=== PATIENT | male | born 1985 | race Caucasian/White ===

== ENCOUNTER 2018-07-09 08:42 | Emergency (ER) | payer OTHER ==
[2018-07-09 08:48] VITALS: RESP 18
--- NOTE | 2018-07-09 09:02 | ED ---
General Adult HPI - General Chief complaint: Upper Respiratory Infection Stated complaint: Coughing & chest pain Source: patient, RN notes reviewed, old records reviewed Mode of arrival: ambulatory Limitations: no limitations - History of Present Illness Initial comments: 33-year-old male presents for evaluation of cough with blood-tinged mucus. Patient was diagnosed with influenza on Friday which was 5 days prior. He states he had URI symptoms and cough 3 days prior to this diagnosis. He has been sick for approximately 10 days total. He has positive sick contacts within his household. He's had a cough which is productive of brown yellow mucous and this morning he had several episodes of blood tinged mucus. He states that his cough is been worse over the past several days. He states he is otherwise feeling well. No fever chills. No vomiting or diarrhea. He states he is back to normal with the exception of persistent productive cough. He does report left-sided chest pain, worse with cough and deep breathing. No chronic medical conditions. No abdominal pain. No fever chills. No lower extremity pain or swelling. - Related Data Home Medications Medication Instructions Recorded Confirmed Albuterol Nebulized [Ventolin 2.5 mg INHALATION RT-Q4H PRN 07/09/18 07/09/18 Nebulized] Previous Rx's Medication Instructions Recorded methylPREDNISolone Dose Pack 4 mg PO DIRECTED #21 package 07/09/18 [Medrol Dose Pack] Allergies Allergy/AdvReac Type Severity Reaction Status Date / Time Penicillins Allergy Unknown Verified 07/09/18 09:01 sulfamethoxazole Allergy Itching Verified 07/09/18 09:01 [From Bactrim] trimethoprim [From Bactrim] Allergy Itching Verified 07/09/18 09:01 Review of Systems ROS Statement: Those systems with pertinent positive or pertinent negative responses have been documented in the HPI. ROS Other: All systems not noted in ROS Statement are negative. Past Medical History Past Medical History: No Reported History History of Any Multi-Drug Resistant Organisms: None Reported Past Surgical History: Appendectomy Past Psychological History: Anxiety Smoking Status: Former smoker Past Alcohol Use History: None Reported Past Drug Use History: None Reported General Exam Limitations: no limitations General appearance: alert, in no apparent distress Head exam: Present: atraumatic, normocephalic Eye exam: Present: normal appearance, PERRL ENT exam: Present: normal exam Neck exam: Present: normal inspection. Absent: tenderness, meningismus Respiratory exam: Present: normal lung sounds bilaterally. Absent: respiratory distress, wheezes, rales, rhonchi Cardiovascular Exam: Present: regular rate, normal rhythm GI/Abdominal exam: Present: soft. Absent: distended, tenderness, guarding Extremities exam: Present: normal inspection, normal capillary refill. Absent: pedal edema, calf tenderness Neurological exam: Present: alert, oriented X3. Absent: motor sensory deficit Psychiatric exam: Present: normal affect, normal mood Skin exam: Present: warm, dry, intact. Absent: cyanosis, diaphoretic Course Vital Signs 07/09/18 08:45 Temperature 98.8 F Pulse Rate 71 Respiratory 18 Rate Blood Pressure 152/86 O2 Sat by Pulse 98 Oximetry Medical Decision Making - Medical Decision Making 33-year-old male with productive cough, recent diagnosis of influenza, and concern for lead tinged sputum. X-rays obtained, negative for focal pneumonia. This is likely related to bronchitis secondary to influenza. Patient will continue to monitor symptoms. He will return with worsening or changing symptoms. Disposition Clinical Impression: Influenza, Bronchitis Disposition: HOME SELF-CARE Condition: Good Instructions: Upper Respiratory Infection (ED), Influenza (ED), Acute Bronchitis (ED) Prescriptions: methylPREDNISolone Dose Pack [Medrol Dose Pack] 4 mg PO DIRECTED #21 package Is patient prescribed a controlled substance at d/c from ED?: No Referrals: Danial Peguero III, MD [Primary Care Provider] - 1-2 days Time of Disposition: 09:44
--- NOTE | 2018-07-09 09:41 | XR ---
EXAMINATION TYPE: XR chest 2V DATE OF EXAM: 07/09/2018 COMPARISON: NONE HISTORY: Chest pain with cough TECHNIQUE: Frontal and lateral views of the chest are obtained. FINDINGS: There is no focal air space opacity, pleural effusion, or pneumothorax seen. The cardiac silhouette size is within normal limits. The osseous structures are intact. IMPRESSION: No acute cardiopulmonary process.
[2018-07-09 09:51] VITALS: BP 140/92; PULSE 68; TEMP 98.6
== END 2018-07-09 09:50 | disposition home or self-care (01) ==
LOC: EC 08:42
DX: J40 Bronchitis, not specified as acute or chronic (principal); J11.1 Influenza due to unidentified influenza virus with other respiratory manifestations; Z87.891 Personal history of nicotine dependence; Z88.0 Allergy status to penicillin; Z88.2 Allergy status to sulfonamides
CPT/HCPCS: 71046; 99285

== ENCOUNTER 2018-09-01 13:10 | Observation (INO) | payer OTHER ==
[2018-09-01] MEDS ORDERED: MECLIZINE 12.5 MG TAB PO STA (14:36)
[2018-09-01] MEDS ORDERED: SODIUM CHLORIDE 0.9% 1,000 ML IV STA (14:36)
[2018-09-01 15:11] LABS: Basophils % (A) 1 %; Eosinophils # (A) 0.1 k/uL (0-0.7); Eosinophils % (A) 1 %; HCT 47.4 % (39.0-53.0); HGB 16.2 gm/dL (13.0-17.5); Lymphocytes # (A) 1.6 k/uL (1.0-4.8); Lymphocytes % (A) 29 %; MCH 30.1 pg (25.0-35.0); MCHC 34.2 g/dL (31.0-37.0); MCV 88.2 fL (80.0-100.0); Mean Platelet Volume 7.4; Monocytes # (A) 0.4 k/uL (0-1.0); Monocytes % (A) 6 %; Neutrophils # (A) 3.4 k/uL (1.3-7.7); Neutrophils % (A) 61 %; Platelet Count 221 k/uL (150-450); RBC 5.37 m/uL (4.30-5.90); RDW 12.6 % (11.5-15.5); WBC 5.6 k/uL (3.8-10.6)
[2018-09-01 15:13] LABS: Appearance,Urine Clear (Clear); Bilirubin,Urine Negative (Negative); Blood,Urine Negative (Negative); Color,Urine Yellow; Glucose,Urine (UA) Negative (Negative); Ketones,Urine Negative (Negative); Leukocyte Esterase,Urine Negative (Negative); Nitrite,Urine Negative (Negative); Protein,Urine Negative (Negative); Specific Gravity,Urine 1.012 (1.001-1.035); Urobilinogen,Urine <2.0 mg/dL (<2.0)
[2018-09-01 15:20] LABS: ALT 43 U/L (21-72); AST 39 U/L (17-59); Albumin 4.6 g/dL (3.5-5.0); Alkaline Phosphatase 69 U/L (38-126); Anion Gap 7 mmol/L; Blood Urea Nitrogen 16 mg/dL (9-20); Calcium 9.1 mg/dL (8.4-10.2); Carbon Dioxide 29 mmol/L (22-30); Chloride 104 mmol/L (98-107); Glucose 84 mg/dL (74-99); Potassium 4.8 mmol/L (3.5-5.1); Sodium 140 mmol/L (137-145); Total Bilirubin 1.2 mg/dL (0.2-1.3); Total Protein 7.6 g/dL (6.3-8.2)
--- NOTE | 2018-09-01 15:22 | XR ---
EXAMINATION TYPE: XR chest 2V DATE OF EXAM: 09/01/2018 COMPARISON: 07/09/2018 HISTORY: Chest pain TECHNIQUE: Frontal and lateral views of the chest are obtained. FINDINGS: There is no focal air space opacity. No evidence for pneumothorax. No pleural effusion. The cardiac silhouette size is within normal limits. The osseous structures are grossly intact. IMPRESSION: 1. No acute cardiopulmonary process.
--- NOTE | 2018-09-01 15:31 | ED ---
Dizziness HPI - General Chief Complaint: Dizziness Stated Complaint: Vertigo Time Seen by Provider: 09/01/18 14:28 Source: patient, RN notes reviewed Mode of arrival: ambulatory Limitations: no limitations - History of Present Illness Initial Comments: 33-year-old male presents emergency Department with chief complaint of dizziness. Patient states he woke up around 8:30 this morning states he tried synapse and states he fell nearly backwards that he was so dizzy. Patient states he tried to get up at that continued to be dizzy worse with movement. Patient states that he had to hang on the wall because he was so dizzy. Patient states that he feels drowsy or hung over. Patient states that he did eat fine yesterday has not eaten today. Denies any history of hyperglycemia. Denies any severe headache. He states he just doesn't feel right. Patient was seen at [facility] given Zofran and Benadryl and sent emergency department. He states the Benadryl is making him tired. Patient has no complaints of chest pain, palpitations, shortness breath. He did have some nausea with no episodes of vomiting. Denies any focal weakness. Patient has a benign past medical history no current medications. - Related Data Home Medications Medication Instructions Recorded Confirmed No Known Home Medications 09/01/18 09/01/18 Allergies Allergy/AdvReac Type Severity Reaction Status Date / Time Penicillins Allergy Unknown Verified 09/01/18 15:32 sulfamethoxazole Allergy Itching Verified 09/01/18 15:32 [From Bactrim] trimethoprim [From Bactrim] Allergy Itching Verified 09/01/18 15:32 Review of Systems ROS Statement: Those systems with pertinent positive or pertinent negative responses have been documented in the HPI. ROS Other: All systems not noted in ROS Statement are negative. Past Medical History Past Medical History: No Reported History History of Any Multi-Drug Resistant Organisms: None Reported Past Surgical History: Appendectomy Past Psychological History: Anxiety Smoking Status: Former smoker Past Alcohol Use History: None Reported Past Drug Use History: None Reported General Exam Limitations: no limitations General appearance: alert, in no apparent distress Head exam: Present: atraumatic, normocephalic, normal inspection Eye exam: Present: normal appearance, PERRL, EOMI. Absent: scleral icterus, conjunctival injection, periorbital swelling ENT exam: Present: normal exam, normal oropharynx, mucous membranes moist, TM's normal bilaterally, normal external ear exam Neck exam: Present: normal inspection, full ROM. Absent: tenderness, meningismus, lymphadenopathy Respiratory exam: Present: normal lung sounds bilaterally. Absent: respiratory distress, wheezes, rales, rhonchi, stridor Cardiovascular Exam: Present: normal rhythm, bradycardia, normal heart sounds. Absent: systolic murmur, diastolic murmur, rubs, gallop, clicks GI/Abdominal exam: Present: soft, normal bowel sounds. Absent: distended, tenderness, guarding, rebound, rigid Extremities exam: Present: normal inspection, full ROM, normal capillary refill. Absent: tenderness, pedal edema, joint swelling, calf tenderness Neurological exam: Present: alert, oriented X3, CN II-XII intact, reflexes normal, other (Finger to nose intact bilaterally without over shooting). Absent: motor sensory deficit Skin exam: Present: warm, dry, intact, normal color. Absent: rash Course Vital Signs 09/01/18 09/01/18 09/01/18 13:23 14:20 14:30 Temperature 98.2 F Pulse Rate 58 L 56 L Respiratory 18 10 L Rate Blood Pressure 160/91 140/78 140/78 O2 Sat by Pulse 99 98 94 L Oximetry 09/01/18 09/01/18 09/01/18 14:40 14:50 15:00 Temperature Pulse Rate 58 L 56 L 54 L Respiratory 19 10 L 6 L Rate Blood Pressure 152/79 141/93 141/93 O2 Sat by Pulse 97 100 100 Oximetry 09/01/18 09/01/18 09/01/18 15:10 15:20 15:30 Temperature Pulse Rate 46 L Respiratory 9 L Rate Blood Pressure 140/81 147/76 147/76 O2 Sat by Pulse 99 Oximetry 09/01/18 09/01/18 15:40 15:50 Temperature Pulse Rate 49 L 46 L Respiratory 0 L 0 L Rate Blood Pressure 138/81 O2 Sat by Pulse 99 100 Oximetry EKG Findings - EKG Comments: EKG Findings:: EKG performed at 14:45 sinus bradycardia incomplete right bundle, rate of 47 [place] 194 QRS 100 Qt/QTC 438/387 Medical Decision Making - Medical Decision Making 33-year-old male presents from for dizziness, near syncopal episode. Patient has been to slightly bradycardic he does state that he has a history of this though this is concerning given his patient's current symptoms. CT was obtained which showed no acute processes no mass. Patient symptoms are not consistent with posterior stroke. Patient will be admitted for cardiology evaluation for near syncope and bradycardia. - Lab Data Result diagrams: 09/01/18 14:53 09/01/18 14:53 Lab Results 09/01/18 09/01/18 09/01/18 Range/Units 14:53 14:53 14:53 WBC 5.6 (3.8-10.6) k/uL RBC 5.37 (4.30-5.90) m/uL Hgb 16.2 (13.0-17.5) gm/dL Hct 47.4 (39.0-53.0) % MCV 88.2 (80.0-100.0) fL MCH 30.1 (25.0-35.0) pg MCHC 34.2 (31.0-37.0) g/dL RDW 12.6 (11.5-15.5) % Plt Count 221 (150-450) k/uL Neutrophils % 61 % Lymphocytes % 29 % Monocytes % 6 % Eosinophils % 1 % Basophils % 1 % Neutrophils # 3.4 (1.3-7.7) k/uL Lymphocytes # 1.6 (1.0-4.8) k/uL Monocytes # 0.4 (0-1.0) k/uL Eosinophils # 0.1 (0-0.7) k/uL Basophils # 0.0 (0-0.2) k/uL Sodium 140 (137-145) mmol/L Potassium 4.8 (3.5-5.1) mmol/L Chloride 104 (98-107) mmol/L Carbon Dioxide 29 (22-30) mmol/L Anion Gap 7 mmol/L BUN 16 (9-20) mg/dL Creatinine 0.87 (0.66-1.25) mg/dL Est GFR (CKD-EPI)AfAm >90 (>60 ml/min/1.73 sqM) Est GFR (CKD-EPI)NonAf >90 (>60 ml/min/1.73 sqM) Glucose 84 (74-99) mg/dL Calcium 9.1 (8.4-10.2) mg/dL Total Bilirubin 1.2 (0.2-1.3) mg/dL AST 39 (17-59) U/L ALT 43 (21-72) U/L Alkaline Phosphatase 69 (38-126) U/L Troponin I <0.012 (0.000-0.034) ng/mL Total Protein 7.6 (6.3-8.2) g/dL Albumin 4.6 (3.5-5.0) g/dL Urine Color Urine Appearance (Clear) Urine pH (5.0-8.0) Ur Specific [place] (1.001-1.035) Urine Protein (Negative) Urine Glucose (UA) (Negative) Urine Ketones (Negative) Urine Blood (Negative) Urine Nitrite (Negative) Urine Bilirubin (Negative) Urine Urobilinogen (<2.0) mg/dL Ur Leukocyte Esterase (Negative) 09/01/18 Range/Units 14:53 WBC (3.8-10.6) k/uL RBC (4.30-5.90) m/uL Hgb (13.0-17.5) gm/dL Hct (39.0-53.0) % MCV (80.0-100.0) fL MCH (25.0-35.0) pg MCHC (31.0-37.0) g/dL RDW (11.5-15.5) % Plt Count (150-450) k/uL Neutrophils % % Lymphocytes % % Monocytes % % Eosinophils % % Basophils % % Neutrophils # (1.3-7.7) k/uL Lymphocytes # (1.0-4.8) k/uL Monocytes # (0-1.0) k/uL Eosinophils # (0-0.7) k/uL Basophils # (0-0.2) k/uL Sodium (137-145) mmol/L Potassium (3.5-5.1) mmol/L Chloride (98-107) mmol/L Carbon Dioxide (22-30) mmol/L Anion Gap mmol/L BUN (9-20) mg/dL Creatinine (0.66-1.25) mg/dL Est GFR (CKD-EPI)AfAm (>60 ml/min/1.73 sqM) Est GFR (CKD-EPI)NonAf (>60 ml/min/1.73 sqM) Glucose (74-99) mg/dL Calcium (8.4-10.2) mg/dL Total Bilirubin (0.2-1.3) mg/dL AST (17-59) U/L ALT (21-72) U/L Alkaline Phosphatase (38-126) U/L Troponin I (0.000-0.034) ng/mL Total Protein (6.3-8.2) g/dL Albumin (3.5-5.0) g/dL Urine Color Yellow Urine Appearance Clear (Clear) Urine pH 7.0 (5.0-8.0) Ur Specific [place] 1.012 (1.001-1.035) Urine Protein Negative (Negative) Urine Glucose (UA) Negative (Negative) Urine Ketones Negative (Negative) Urine Blood Negative (Negative) Urine Nitrite Negative (Negative) Urine Bilirubin Negative (Negative) Urine Urobilinogen <2.0 (<2.0) mg/dL Ur Leukocyte Esterase Negative (Negative) Disposition Clinical Impression: Near syncope, Vertigo, Bradycardia Disposition: ADMITTED IP TO THIS [facility] Condition: Stable Referrals: Danial Peguero III, MD [Primary Care Provider] - 1-2 days
--- NOTE | 2018-09-01 15:46 | CT ---
EXAMINATION TYPE: CT brain wo con DATE OF EXAM: 09/01/2018 COMPARISON: None HISTORY: Dizziness and near syncope today. CT DLP: 1078.4 mGycm. Automated Exposure Control for Dose Reduction was Utilized. TECHNIQUE: CT scan of the head is performed without contrast. FINDINGS: There is no acute intracranial hemorrhage, mass effect, or midline shift identified. The ventricles and sulci are within normal limits in size. The globes are intact and the visualized sin uses are clear. Cerebellar tonsils low-lying in position. IMPRESSION: No acute intracranial hemorrhage, mass effect, or midline shift is seen. Low-lying cereb ellar tonsils could be correlated with MRI as clinically
[2018-09-01] MEDS ORDERED: NALOXONE 0.4 MG/ML 1 ML VIAL IV PRN (16:35)
[2018-09-01] MEDS ORDERED: ONDANSETRON 4 MG/2 ML VIAL IVP PRN (16:35)
[2018-09-01] MEDS ORDERED: IBUPROFEN 400 MG TAB PO PRN (16:35)
[2018-09-01] MEDS ORDERED: ACETAMINOPHEN TAB 325 MG TAB PO PRN (16:35)
[2018-09-01] MEDS ORDERED: MECLIZINE 25 MG TAB PO PRN (16:37)
[2018-09-01] MEDS ORDERED: SODIUM CHLORIDE 0.9% 1,000 ML IV SCH (16:45)
[2018-09-01 17:58] VITALS: BMI 28.2
[2018-09-01 18:15] VITALS: RESP 18
--- NOTE | 2018-09-01 21:30 | P.HPIM ---
History of Present Illness H&P Date: 09/01/18 Chief Complaint: Dizziness and fall Patient is a 33-year-old male with a history of anxiety, previous history of smoking came to ER with complaints of dizziness. Patient says that he got up in the morning and suddenly felt dizzy and fell back onto the bed. Patient had trouble walking through house and felt very wobbly and losing balance since then. Patient says that he felt like hangover. Patient denied any recent illnesses except for influenza A and June 2018 which has completely resolved. Patient felt slight headache yesterday. Otherwise denied any fever or chills. No chest pain or shortness of breath. Denied palpitations. Patient does have nausea. her some vomiting. Denied any focal weakness. Currently denied any headache. Patient was completely well yesterday. Patient says that he did have history of palpitations years ago in heartmonitorandstudycameoutnegative.Deniedanyrecenttravel. [facility]wasseenat[facility] and was given Zofran and Benadryl. Patient was sent to ER for evaluation. chest x-ray showed no acute cardiopulmonary process CT head showed no acute intracranial hemorrhage, mass effect or midline shift seen. Low-lying cerebellar tonsils could be correlated with MRI as clinically indicated. EKG showed sinus bradycardia with heart rate 47. Review of Systems Constitutional: Patient denies any fever or chills . No generalized weakness or weight loss. Abdomen: Patient denied nausea vomiting and diarrhea and abdominal pain. Cardiovascular: Patient denies any chest pain or short of breath no palpitations. Respiratory: patient denied any cough is from production. No shortness of breath Neurologic: Patient denied any numbness or tingling headache. Musculoskeletal: Patient denies any complaints of joint swelling or deformity. Skin: Negative Psychiatric: Negative Endocrine: No heat or cold intolerance. No recent weight gain. Genitourinary: No dysuria or hematuria. All other 14 point ROS negative except the above Past Medical History Past Medical History: No Reported History History of Any Multi-Drug Resistant Organisms: None Reported Past Surgical History: Appendectomy Past Psychological History: Anxiety Smoking Status: Former smoker Past Alcohol Use History: None Reported Past Drug Use History: None Reported Medications and Allergies Home Medications Medication Instructions Recorded Confirmed Type No Known Home Medications 09/01/18 09/01/18 History Allergies Allergy/AdvReac Type Severity Reaction Status Date / Time Penicillins Allergy Unknown Verified 09/01/18 15:32 sulfamethoxazole Allergy Itching Verified 09/01/18 15:32 [From Bactrim] trimethoprim [From Bactrim] Allergy Itching Verified 09/01/18 15:32 Physical Exam Vitals: Vital Signs Temp Pulse Pulse Resp BP BP Pulse Ox 09/01/18 17:35 98.5 F 52 L 18 143/83 100 09/01/18 16:30 58 L 12 131/74 100 09/01/18 16:00 47 L 14 138/81 100 09/01/18 15:50 46 L 14 138/81 100 09/01/18 15:40 49 L 14 99 09/01/18 15:30 147/76 09/01/18 15:20 46 L 14 147/76 99 09/01/18 15:10 140/81 09/01/18 15:00 54 L 14 141/93 100 09/01/18 14:50 56 L 14 141/93 100 09/01/18 14:40 58 L 19 152/79 97 09/01/18 14:30 56 L 12 140/78 94 L 09/01/18 14:20 14 140/78 98 09/01/18 13:23 98.2 F 58 L 18 160/91 99 Intake and Output 09/01/18 09/01/18 09/01/18 06:59 14:59 22:59 Intake Total 1000 Balance 1000 Intake: Amount of Fluid Infused ( 1000 ml) Other: Voiding Method Toilet Weight 99.79 kg PHYSICAL EXAMINATION: Patient is lying in the bed comfortably, no acute distress, awake alert and oriented.. HEENT: Normocephalic. Neck is supple. Pupils reactive. Nostrils clear. Oral cavity is moist. Ears reveal no drainage. Neck reveals no JVD, carotid bruits, or thyromegaly. CHEST EXAMINATION: Trachea is central. Symmetrical expansion. Lung otto clear to auscultation and percussion. CARDIAC: Normal S1, S2 with no gallops. No murmurs ABDOMEN: Soft. Bowel sounds normal. No organomegaly. No abdominal bruits. Extremities: reveal no edema. No clubbing or cyanosis Neurologically awake, alert, oriented x3 with well-coordinated movements. No focal deficits noted Skin: No rash or skin lesions. Psychiatric: Coperative. Nonsuicidal Musculoskeletal: No joint swelling or deformity. Normal range of motion. Results CBC & Chem 7: 09/01/18 14:53 09/01/18 14:53 Thrombosis Risk Factor Assmnt - DVT/VTE Prophylaxis DVT/VTE Prophylaxis: Pharmacologic Prophylaxis ordered - Choose All That Apply Any of the Below Risk Factors Present?: No Other Risk Factors: No Thrombosis Risk Factor Assessment Level: Very Low Risk Assessment and Plan Assessment: Dizziness and near syncope. Possible vertigo. Workup negative so far Sinus bradycardia. History of palpitations and negative Holter monitor study 3 years back Anxiety DVT prophylaxis Plan: Patient will be continued on telemetry monitoring. Symptomatic management for nausea and vertigo with meclizine. Continue with IV hydration and cardiology will be consulted. Further recommendations based on the clinical course. Time with Patient: Greater than 30
--- NOTE | 2018-09-02 08:23 | CONS ---
CONSULTATION Mr. Calderon is a 33-year-old male with no prior cardiac history who presented with symptoms of dizziness. He woke up yesterday and felt dizzy, went to the bathroom and felt unsteady. Some of his symptoms was worse with change of position of his head. He did not have any associated palpitation or syncope. He has no dyspnea or any chest tightness. He had no recent symptoms of upper respiratory infection. He felt mildly nauseated. His symptoms persisted and because of that he came into the emergency room and cardiology consultation was requested because of finding of sinus bradycardia. He is feeling better today. Yesterday, he had trouble with dizziness whenever he moves his head. He has no PND, orthopnea, or peripheral edema. He is active physically without difficulty. He has no history of cardiac disease or malignant arrhythmia. His coronary risk factors negative for hypertension, hyperlipidemia, or diabetes mellitus. He is a nonsmoker. He stopped about 8 years ago. MEDICATION: His medications at home are none. REVIEW OF SYSTEMS: RESPIRATORY SYSTEM: He has no recent wheezing. No cough. No history of documented obstructive lung disease. He had a prior history of asthma as a child that he outgrew. GI SYSTEM: No recent GI bleeding. No peptic ulcer disease. He had mild nausea yesterday. SYSTEM: No dysuria or hematuria. NERVOUS SYSTEM: No history of stroke or seizure. PHYSICAL EXAMINATION: A 33-year-old male, alert, oriented, in no apparent distress. Blood pressure 145/70 with the heart rate in the 50s. HEAD: Normocephalic. EYES: Sclerae anicteric. NECK: Good upstroke. No bruit. No jugular venous distention. EYES: With mild nystagmus noted. LUNGS: Clear to auscultation. HEART: Regular rate and rhythm. S1, S2. No S3. No S4. No murmur or rub. ABDOMEN: Soft, nontender. Positive bowel sounds. No organomegaly. EXTREMITIES: No edema. Intact distal pulses. LAB DATA: Lab data revealed a troponin less than 0.012. Potassium 4.8. BUN and creatinine 16 and 0.87. Hemoglobin of 16.2. EKG revealed sinus bradycardia RSR prime, otherwise no acute changes. Chest x-ray showed no infiltrate. Brain CT showed no acute bleeding. IMPRESSION: 1. Symptoms of dizziness and unsteadiness consistent with vertigo. 2. Sinus bradycardia documented in the past according to the patient. RECOMMENDATION: From the cardiac standpoint, I do not believe that the sinus bradycardia has any role in his presenting symptoms. At this time, I will obtain echocardiogram with Doppler. If it is unremarkable, I would expect he should be able to be discharged home today and followed as an outpatient. Thank you for this consult. We will follow with you. ROXANNA / NILESH: [id number] / BASIL
[2018-09-02 11:49] VITALS: BP 136/77; PULSE 66; TEMP 98.6
--- NOTE | 2018-09-02 12:57 | ECHOF ---
Referral Reason:dizziness MEASUREMENTS -------- HEIGHT: 182.9 cm WEIGHT: 99.8 kg BP: 145/75 RVIDd: 3.3 cm (< 3.3) IVSd: 1.1 cm (0.6 - 1.1) LVIDd: 4.7 cm (3.9 - 5.3) LVPWd: 1.4 cm (0.6 - 1.1) IVSs: 1.5 cm LVIDs: 3.1 cm LVPWs: 2.0 cm LAESV Index (A-L): 16.70 ml/m Ao Diam: 3.2 cm (2.0 - 3.7) AV Cusp: 2.2 cm (1.5 - 2.6) LA Diam: 3.3 cm (2.7 - 3.8) MV EXCURSION: 17.007 mm (> 18.000) MV EF SLOPE: 105 mm/s (70 - 150) EPSS: 0.5 cm MV E [place]: 1.08 m/s MV DecT: 236 ms MV A [place]: 0.66 m/s MV E/A Ratio: 1.64 RAP: 5.00 mmHg RVSP: 10.09 mmHg FINDINGS -------- Sinus rhythm. Resting bradycardia (HR<60bpm). This was a technically good study. The left ventricular size is normal. There is mild concentric left ventricular hypertrophy. Overa ll left ventricular systolic function is normal with, an EF between 55 - 60 %. The right ventricle is mildly enlarged. Normal LA size by volume 22+/-6 ml/m2. The right atrial size is normal. The aortic valve is trileaflet, and appears structurally normal. No aortic stenosis or regurgitation. The mitral valve is normal. Mild mitral regurgitation is present. Trace tricuspid regurgitation present. There is no evidence of pulmonary hypertension. The right ventricular systolic pressure, as measured by Doppler, is 10.09mmHg. There is no pulmonic regurgitation present. The aortic root size is normal. Normal inferior vena cava with normal inspiratory collapse consistent with estimated right atrial pre ssure of 5 mmHg. There is no pericardial effusion. CONCLUSIONS -------- 1. Sinus rhythm. 2. Resting bradycardia (HR<60bpm). 3. This was a technically good study. 4. The left ventricular size is normal. 5. There is mild concentric left ventricular hypertrophy. 6. Overall left ventricular systolic function is normal with, an EF between 55 - 60 %. 7. The right ventricle is mildly enlarged. 8. Normal LA size by volume 22+/-6 ml/m2. 9. The aortic valve is trileaflet, and appears structurally normal. No aortic stenosis or regurgitati on. 10. Mild mitral regurgitation is present. 11. Trace tricuspid regurgitation present. 12. There is no evidence of pulmonary hypertension. 13. There is no pulmonic regurgitation present. 14. The aortic root size is normal. 15. Normal inferior vena cava with normal inspiratory collapse consistent with estimated right atrial pressure of 5 mmHg. 16. There is no pericardial effusion. PSYCHIATRIC TECH: Guillermina Wetzel RDCS
== END 2018-09-02 13:40 | disposition home or self-care (01) ==
LOC: EC 13:10 → 1SOBS 16:40
PROVIDERS: ADMIT Internal Medicine; ATTEND Internal Medicine
DX: F41.9 Anxiety disorder, unspecified (principal); R42 Dizziness and giddiness; Z87.891 Personal history of nicotine dependence; R51 Headache; R11.2 Nausea with vomiting, unspecified; R00.1 Bradycardia, unspecified; Z88.0 Allergy status to penicillin; Z88.2 Allergy status to sulfonamides; R55 Syncope and collapse; R40.0 Somnolence; R26.2 Difficulty in walking, not elsewhere classified
CPT/HCPCS: 96360; 96361; 99285; 36415; 93005; 93306; 80053; 84484; 85025; 81003; 71046; 70450; G0378 ×2